=== PATIENT | female | born 1990 | race Hispanic/Latino ===

== ENCOUNTER 2018-03-27 19:33 | Emergency (ER) | payer MEDICAID, OTHER ==
[~2018-03-27 19:33] MED LIST: IBUP-2070 PO
[2018-03-27 20:14] LABS: APPEARANCE,URINE Clear (CLEAR); BILIRUBIN,URINE Negative (NEGATIVE); COLOR,URINE Yellow (YELLOW); GLUCOSE, URINE (UA) Negative (NEGATIVE); KETONES,URINE Negative (NEGATIVE); LEUKOCYTE ESTERASE ,URINE Small (NEGATIVE); NITRATE,URINE Negative (NEGATIVE); OCCULT BLOOD,URINE Negative (NEGATIVE); PROTEIN,URINE Negative (NEGATIVE)
[2018-03-27 20:29] LABS: BACTERIA,URINE Rare /HPF (None Seen); RBC,URINE 0-1 /HPF (0-1); SQUAMOUS EPITHELIAL CELL,UR Few /HPF (0-2)
== END 2018-03-27 20:38 | disposition home or self-care (01) ==
LOC: EDH 19:33
DX: O26.891 Other specified pregnancy related conditions, first trimester (principal); R10.9 Unspecified abdominal pain; Z3A.01 Less than 8 weeks gestation of pregnancy; Z90.49 Acquired absence of other specified parts of digestive tract
CPT/HCPCS: 81001; 81025

== ENCOUNTER 2018-05-22 23:19 | Emergency (ER) | payer MEDICAID ==
[2018-05-23 00:51] LABS: BASOPHILS % (AUTO) 0.4 % (0.0-5.0); EOSINOPHILS % (AUTO) 0.6 % (0.0-8.0); HEMATOCRIT 35.5 % (36-48); LYMPHOCYTES % (AUTO) 27.7 % (21.0-51.0); MEAN CORPUSCULAR HEMOGLOBIN 30.8 pg (27.0-33.0); MEAN CORPUSCULAR HGB CONC 33.2 g/dL (32.0-36.0); MONOCYTES % (AUTO) 4.8 % (3.0-13.0); NEUTROPHILS % (AUTO) 66.5 % (40.0-77.0); PLATELET COUNT (AUTO) 205 K/uL (130-400); RED BLOOD CELL COUNT(AUTO) 3.81 MIL/uL (4.00-5.50); RED CELL DISTRIBUTION WIDTH 13.1 % (11.0-15.5); WHITE BLOOD COUNT (AUTO) 11.7 K/uL (4.8-10.8)
[2018-05-23 00:54] LABS: APPEARANCE,URINE Clear (CLEAR); BILIRUBIN,URINE Negative (NEGATIVE); COLOR,URINE Yellow (YELLOW); GLUCOSE, URINE (UA) Negative (NEGATIVE); KETONES,URINE Negative (NEGATIVE); LEUKOCYTE ESTERASE ,URINE Trace (NEGATIVE); NITRATE,URINE Negative (NEGATIVE); OCCULT BLOOD,URINE Large (NEGATIVE); PH,URINE 6.5 (5.0-8.0); PROTEIN,URINE Negative (NEGATIVE); UROBILINOGEN,URINE 0.2 mg/dL (0.2-1.0)
[2018-05-23 01:01] LABS: CREATININE 0.8 mg/dL (0.5-1.5); POTASSIUM 4.3 mmol/L (3.5-5.1)
[2018-05-23 01:03] LABS: INR 0.93 (0.85-1.15); PARTIAL THROMBOPLASTIN TIME 28.9 SEC (26.3-35.5); PROTHROMBIN TIME 9.8 SEC (9.6-11.6)
[2018-05-23 01:04] LABS: BACTERIA,URINE Few /HPF (None Seen); MUCUS,URINE Moderate LPF (None Seen); SQUAMOUS EPITHELIAL CELL,UR Moderate /HPF (0-2)
[2018-05-23 01:27] LABS: ALBUMIN 3.2 g/dL (3.5-5.0); BILIRUBIN,TOTAL 0.2 mg/dL (0.2-1.0); TOTAL PROTEIN, SERUM 6.8 g/dL (6.0-8.3)
== END 2018-05-23 02:07 | disposition home or self-care (01) ==
LOC: EDH 23:19
DX: O20.0 Threatened abortion (principal); Z3A.13 13 weeks gestation of pregnancy; Z90.49 Acquired absence of other specified parts of digestive tract
CPT/HCPCS: 36415; 76801; 80053; 81001; 84702; 85025; 85610; 85730

== ENCOUNTER 2018-07-01 18:56 | Observation (INO) | payer OTHER, MEDICAID ==
[~2018-07-01] VITALS: Ht 154.9 cm; Wt 64.9 kg
[2018-07-01 19:49] LABS: APPEARANCE,URINE Clear (CLEAR); BILIRUBIN,URINE Negative (NEGATIVE); COLOR,URINE Yellow (YELLOW); GLUCOSE, URINE (UA) Negative (NEGATIVE); KETONES,URINE Negative (NEGATIVE); LEUKOCYTE ESTERASE ,URINE Negative (NEGATIVE); NITRATE,URINE Negative (NEGATIVE); OCCULT BLOOD,URINE Negative (NEGATIVE); PH,URINE 6.5 (5.0-8.0); PROTEIN,URINE Negative (NEGATIVE)
[2018-07-01 20:22] LABS: AMPHET/METH SCREEN,URINE NEGATIVE (NEGATIVE); BARBITURATE SCREEN, URINE NEGATIVE (NEGATIVE); BENZODIAZEPINES SCREEN,URINE NEGATIVE (NEGATIVE); CANNABINOID SCREEN,URINE NEGATIVE (NEGATIVE); COCAINE SCREEN,URINE NEGATIVE (NEGATIVE); OPIATE SCREEN,URINE NEGATIVE (NEGATIVE); PHENCYCLIDINE SCREEN,URINE NEGATIVE (NEGATIVE)
== END 2018-07-01 21:35 | disposition home or self-care (01) ==
LOC: EDH 18:56 → EDHIP 18:57 → INTOOBSV 19:48 → UNDOADMOB 19:48 → OBSVTOIN 19:48 → EDHIP 19:48 → LDH 20:20 → EDHIP 20:20 → UNDODISOB 21:35
PROVIDERS: ADMIT Obstetrics & Gynecology; ATTEND Obstetrics & Gynecology
DX: O26.892 Other specified pregnancy related conditions, second trimester (principal); R10.30 Lower abdominal pain, unspecified; Z3A.18 18 weeks gestation of pregnancy; Z90.49 Acquired absence of other specified parts of digestive tract; Z79.899 Other long term (current) drug therapy
CPT/HCPCS: 80305; 81003; 99284; G0378 ×3

== ENCOUNTER 2018-09-29 14:44 | Observation (INO) | payer OTHER, MEDICAID ==
[~2018-09-29] VITALS: Ht 154.9 cm; Wt 68.9 kg
[2018-09-29] MEDS ORDERED: LACTATED RINGERS 1000ML 1,000 ML IV PRN (15:14)
[2018-09-29 16:11] LABS: APPEARANCE,URINE Clear (CLEAR); BILIRUBIN,URINE Negative (NEGATIVE); COLOR,URINE Yellow (YELLOW); GLUCOSE, URINE (UA) Negative (NEGATIVE); KETONES,URINE Negative (NEGATIVE); LEUKOCYTE ESTERASE ,URINE Small (NEGATIVE); NITRATE,URINE Negative (NEGATIVE); OCCULT BLOOD,URINE Negative (NEGATIVE); PROTEIN,URINE Negative (NEGATIVE)
[2018-09-29 16:34] LABS: BACTERIA,URINE Few /HPF (None Seen); RBC,URINE None Seen /HPF (0-1)
[2018-09-29 16:35] LABS: WBC,URINE 0-1 /HPF (0-1)
[2018-09-29] MEDS ORDERED: CEFTRIAXONE SODIUM 1 GM IVP SCH (17:00)
[2018-09-29] MEDS ORDERED: CEFTRIAXONE SODIUM 1 GM ONE (17:13)
[2018-09-29 18:31] VITALS: BP 111/58
== END 2018-09-29 18:52 | disposition home or self-care (01) ==
LOC: LDH 14:44
PROVIDERS: ADMIT Obstetrics & Gynecology; ATTEND Obstetrics & Gynecology
DX: O60.03 Preterm labor without delivery, third trimester (principal); Z3A.31 31 weeks gestation of pregnancy
CPT/HCPCS: 76805; 81001; G0378 ×5; J0696; J7120; 96360; 96365

== ENCOUNTER 2018-10-19 00:33 | Observation (INO) | payer OTHER, MEDICAID ==
[~2018-10-19] VITALS: Ht 154.9 cm; Wt 68.0 kg
[2018-10-19 01:25] LABS: APPEARANCE,URINE Clear (CLEAR); BILIRUBIN,URINE Negative (NEGATIVE); COLOR,URINE Yellow (YELLOW); GLUCOSE, URINE (UA) Negative (NEGATIVE); KETONES,URINE Negative (NEGATIVE); LEUKOCYTE ESTERASE ,URINE Negative (NEGATIVE); NITRATE,URINE Negative (NEGATIVE); OCCULT BLOOD,URINE Negative (NEGATIVE); PH,URINE 7.5 (5.0-8.0); PROTEIN,URINE Negative (NEGATIVE)
[2018-10-19 01:34] LABS: AMPHET/METH SCREEN,URINE NEGATIVE (NEGATIVE); BARBITURATE SCREEN, URINE NEGATIVE (NEGATIVE); BENZODIAZEPINES SCREEN,URINE NEGATIVE (NEGATIVE); CANNABINOID SCREEN,URINE NEGATIVE (NEGATIVE); COCAINE SCREEN,URINE NEGATIVE (NEGATIVE); OPIATE SCREEN,URINE NEGATIVE (NEGATIVE); PHENCYCLIDINE SCREEN,URINE NEGATIVE (NEGATIVE)
[2018-10-19] MEDS ORDERED: LACTATED RINGERS 1000ML 1,000 ML IV SCH (02:15)
[2018-10-19] MEDS: TERBUTALINE SULFATE VIAL 1MG/ML SQ PRN ×2 (07:45→08:07)
== END 2018-10-19 10:49 | disposition home or self-care (01) ==
LOC: EDH 00:33 → LDH 00:34
PROVIDERS: ADMIT Obstetrics & Gynecology; ATTEND Obstetrics & Gynecology
DX: O60.03 Preterm labor without delivery, third trimester (principal); Z3A.34 34 weeks gestation of pregnancy; Z79.899 Other long term (current) drug therapy
CPT/HCPCS: 80305; 81003; 96372; 99284; G0378 ×10; J3105; J7120; 96360

== ENCOUNTER 2018-11-02 17:10 | Inpatient (IN) | payer OTHER, MEDICAID ==
[~2018-11-02] VITALS: Ht 154.9 cm; Wt 71.2 kg
[2018-11-02 18:00] LABS: HEMATOCRIT 31.9 % (36-48); MEAN CORPUSCULAR HEMOGLOBIN 28.4 pg (27.0-33.0); MEAN CORPUSCULAR HGB CONC 32.4 g/dL (32.0-36.0); MEAN CORPUSCULAR VOLUME 87.6 fL (79-99); PLATELET COUNT (AUTO) 340 K/uL (130-400); RED BLOOD CELL COUNT(AUTO) 3.64 MIL/uL (4.00-5.50); RED CELL DISTRIBUTION WIDTH 13.4 % (11.0-15.5); WHITE BLOOD COUNT (AUTO) 13.6 K/uL (4.8-10.8)
[2018-11-02] MEDS: LACTATED RINGERS 1000ML 1,000 ML IV PRN ×2 (18:00→20:17)
[2018-11-02 18:04] LABS: APPEARANCE,URINE Clear (CLEAR); BILIRUBIN,URINE Negative (NEGATIVE); COLOR,URINE Yellow (YELLOW); GLUCOSE, URINE (UA) Negative (NEGATIVE); KETONES,URINE Negative (NEGATIVE); LEUKOCYTE ESTERASE ,URINE Moderate (NEGATIVE); NITRATE,URINE Negative (NEGATIVE); OCCULT BLOOD,URINE Negative (NEGATIVE); PH,URINE 6.5 (5.0-8.0); PROTEIN,URINE Trace mg/dL (NEGATIVE)
[2018-11-02] MEDS ORDERED: AMPICILLIN 2GM+NS 100ML 100 ML IV SCH (18:15)
[2018-11-02 18:16] LABS: BACTERIA,URINE Few /HPF (None Seen); RBC,URINE None Seen /HPF (0-1)
[2018-11-02] MEDS: OXYTOCIN-LR 20 UNITS/1000 ML 1,000 ML IV SCH (18:35)
[2018-11-02] MEDS ORDERED: LIDOCAINE HCL 1% 20 ML VIAL ONE (23:39)
[2018-11-03] VITALS (7 sets, daily range): BP systolic 102–120; BP diastolic 48–69
[2018-11-03] MEDS ORDERED: IBUPROFEN 600 MG TABLET ONE (00:29)
[2018-11-03] MEDS ORDERED: LANOLIN 30GM OINTMENT TP PRN (00:30)
[2018-11-03] MEDS ORDERED: DIPH,PERTUSS(ACELL),TET VAC/PF 0.5 ML VIAL IM PRN (00:30)
[2018-11-03] MEDS ORDERED: WITCH HAZEL 1 PAD TP PRN (00:30)
[2018-11-03] MEDS ORDERED: ACETAMINOPHEN-CODEINE 300/30MG TAB PO PRN (00:30)
[2018-11-03] MEDS ORDERED: ACETAMINOPHEN 325 MG TAB PO PRN (00:30)
[2018-11-03] MEDS ORDERED: BENZOCAINE/LANOLIN/ALOE VERA 60 ML AEROSOL TP PRN (00:30)
[2018-11-03] MEDS ORDERED: MEASLES/MUMPS/RUBELLA VACCINE, LIVE 0.5 ML/VIAL SQ PRN (00:30)
[2018-11-03] MEDS: OXYTOCIN-LR 20 UNITS/1000 ML 1,000 ML IV SCH (00:38)
[2018-11-03 05:19] LABS: HEMATOCRIT 28.9 % (36-48); MEAN CORPUSCULAR HGB CONC 33.4 g/dL (32.0-36.0); MEAN CORPUSCULAR VOLUME 86.8 fL (79-99); PLATELET COUNT (AUTO) 270 K/uL (130-400); RED BLOOD CELL COUNT(AUTO) 3.33 MIL/uL (4.00-5.50); RED CELL DISTRIBUTION WIDTH 13.4 % (11.0-15.5); WHITE BLOOD COUNT (AUTO) 18.1 K/uL (4.8-10.8)
[2018-11-03] MEDS: IBUPROFEN 600 MG TABLET PO PRN ×3 (06:21→21:04)
--- NOTE | 2018-11-03 07:45 | NUR ---
PATIENT ASSESSED AND C/O MILD DISCOMFORT DUE TO CRAMPING. FUNDUS IS FIRM AND PIV TO LEFT FOREARM INFUSING AT 125CC/HR OF LR. PATIENT STABLE AND BONDING WELL WITH .
[2018-11-03] MEDS: DOCUSATE SODIUM 100 MG CAP PO SCH ×2 (08:46→20:51)
--- NOTE | 2018-11-03 11:00 | NUR ---
PATIENT UP AND SHOWERED AND TOLERATED ACTIVITY WELL.
[2018-11-03] MEDS: AMPICILLIN 1GM+NS 50ML 50 ML IV SCH (23:40)
[2018-11-04] MEDS: AMPICILLIN 1GM+NS 50ML 50 ML IV SCH (01:21)
[2018-11-04 04:00] VITALS: BP 107/56
[2018-11-04 07:20] LABS: HEPATITIS Bs ANTIGEN SCREEN P Negative (Negative)
[2018-11-04 07:30] VITALS: BP 116/56
[2018-11-04] MEDS: DOCUSATE SODIUM 100 MG CAP PO SCH (08:08)
[2018-11-04] MEDS: IBUPROFEN 600 MG TABLET PO PRN (08:09)
[2018-11-04 11:45] VITALS: BP 110/74
--- NOTE | 2018-11-04 11:45 | NUR ---
PATIENT WAS TAKEN VIA W/C TO FAMILY VEHICLE CARRYING BABY IN ARMS. PATIENT IS STABLE AND HAS REMAINED AFEBRILE. PATIENT AND BABY DISCHARGED TO HER BOYFRIEND IN STABLE CONDITION.
== END 2018-11-04 11:45 | disposition home or self-care (01) | DRG 806 ==
LOC: LDH 17:10 → OBSVTOIN 18:14 → WSH 11-03 01:55
PROVIDERS: ADMIT Obstetrics & Gynecology; ATTEND Obstetrics & Gynecology
PROC: 10E0XZZ Delivery of Products of Conception, External Approach (ICD-10-PCS; principal; 2018-11-03)
PROC: 0HQ9XZZ Repair Perineum Skin, External Approach (ICD-10-PCS; 2018-11-03)
PROC: 10907ZC Drainage of Amniotic Fluid, Therapeutic from Products of Conception, Via Natural or Artificial Opening (ICD-10-PCS; 2018-11-03)
PROC: 3E0R3BZ Introduction of Anesthetic Agent into Spinal Canal, Percutaneous Approach (ICD-10-PCS; 2018-11-03)
PROC: 00HU33Z Insertion of Infusion Device into Spinal Canal, Percutaneous Approach (ICD-10-PCS; 2018-11-03)
PROC: 3E0234Z Introduction of Serum, Toxoid and Vaccine into Muscle, Percutaneous Approach (ICD-10-PCS; 2018-11-03)
DX: O42.913 Preterm premature rupture of membranes, unspecified as to length of time between rupture and onset of labor, third trimester (principal); O71.4 Obstetric high vaginal laceration alone; Z37.0 Single live birth; O99.824 Streptococcus B carrier state complicating childbirth; Z3A.36 36 weeks gestation of pregnancy; Z23 Encounter for immunization
CPT/HCPCS: 36415; 81001; 85027; 86156; 86592; 86850; 86870; 86900; 86901; 87340; 90715; A4314; A4351; G0378; J0290; J2590; J7120